=== PATIENT | female | born 1965 | race Caucasian/White ===

== ENCOUNTER 2018-01-26 09:31 | Emergency (ER) | payer OTHER, MEDICAID, SELFPAY ==
[2018-01-26 09:55] VITALS: BP 161/94; PULSE 89; RESP 18; TEMP 37.1; O2SAT 100; BMI 23.3
[2018-01-26] MEDS: SODIUM CHLORIDE 0.9% 1,000 ML 1000 ML IV (10:33)
[2018-01-26] MEDS: KETOROLAC 60 MG/2 ML VIAL 30 MG IV (10:34)
[2018-01-26] MEDS: ONDANSETRON 4 MG/2 ML INJ IV (10:34)
[2018-01-26 10:44] LABS: Add Manual Diff / Slide Review NO; Eosinophils Percent Auto 1.7 % (2-4); Hematocrit 35.4 % (36-46); Hemoglobin 11.9 g/dL (12.0-16.0); Lymphocytes Percent Auto 9.8 % (25-40); Mean Corpuscular HGB Conc 33.6 % (30-36); Mean Corpuscular Hemoglobin 28.1 PG (26-34); Mean Corpuscular Volume 83.7 fL (80-100); Monocytes Percent Auto 8.1 % (3-14); Neutrophils Absolute Auto 8400 /uL (3000-5900); Neutrophils Percent Auto 79.4 % (50-75); Platelet Count 242 X10^3/uL (150-400); Red Blood Cell Count 4.23 X10^6/uL (4.0-5.2); Red Cell Distribution Width 15.2 % (11.6-14.8); White Blood Cell Count 10.6 X10^3/uL (4.5-11.0)
[2018-01-26 10:56] LABS: BUN Creatinine Ratio 14.3 (6-22); Blood Urea Nitrogen 10 mg/dL (7-17); Calcium 9.1 mg/dL (8.4-10.2); Carbon Dioxide 29 mmol/L (22-32); Chloride 107 mmol/L (98-107); Estimated Glomerular Filt Rate > 60.0 mL/min (>60); Glucose 108 mg/dL (70-100); HEMOLYSIS < 15 (0-50); Potassium 3.7 mmol/L (3.4-5.1); Sodium 145 mmol/L (137-145)
--- NOTE | 2018-01-26 11:06 | PC.NURSE ---
also c/o back and swallowing difficulty due to pain in bilateral neck/throat and has difficult time eating or hydrating. Dry oral mucous membrane noted. Tonsilar area w/o redness/swelling/pustules. Bilateral neck, tender to palpate.
[2018-01-26 11:13] VITALS: BP 135/68; PULSE 70; RESP 17; O2SAT 99
--- NOTE | 2018-01-26 11:33 | ED_ITS ---
HPI - Nausea/Vomiting/Diarrhea General Chief complaint: Nausea/Vomiting/Diarrhea Stated complaint: SICK LAST TWO DAYS/CAN'T SWALLOW Time Seen by Provider: 01/26/18 09:54 Source: patient and RN notes reviewed Mode of arrival: ambulatory Limitations: no limitations History of Present Illness HPI Narrative: The patient is a 52-year-old female who presents with throat pain and nausea. She does have a history of trigeminal neuralgia she does get exacerbations of 8 she felt like she had 1 last night she took her baclofen this morning however she feels like it did not help. Now he is having bilateral anterior neck pain and she feels she has swelling under her chin. She says that her throat hurts but she is able to swallow. She denies any difficulty breathing. He is taken steroids in the past for nerve pain which she says she does not help. She has not had any fever or chills. MD complaint: nausea Related Data Home Medications Medication Instructions Recorded Confirmed duloxetine 60 mg PO QDAY #0 04/09/17 hydroxyzine pamoate 75 mg PO HS #0 04/09/17 prochlorperazine maleate #0 05/22/17 [Compazine] Previous Rx's Medication Instructions Recorded hydrocodone-acetaminophen 0 tab PO Q6HP PRN #15 tab 04/09/17 ondansetron [Zofran ODT] 4 mg SUBLINGUAL Q6HP PRN #20 odt 04/09/17 Allergies Allergy/AdvReac Type Severity Reaction Status Date / Time lithium Allergy Verified 01/26/18 10:02 Review of Systems Review of Systems All systems reviewed & are unremarkable except as noted in HPI and below Constitutional Denies chills, Denies fever(s), Denies lethargy and Denies weakness Eyes Denies change in vision, Denies eye discharge, Denies irritation and Denies loss of vision ENT Ears, Nose, Mouth, and Throat: Reports as per HPI, Denies change in voice, Reports facial pain, Reports mouth pain, Reports neck pain, Reports sinus pain, Reports sinus pressure, Denies throat swelling and Denies tongue swelling Cardiovascular Denies chest pain, Denies irregular heart rhythm, Denies lightheadedness, Denies palpitations, Denies dyspnea, Denies dyspnea on exertion and Denies orthopnea Respiratory Denies cough, Denies dyspnea, Denies dyspnea on exertion and Denies wheezing Gastrointestinal Gastrointestinal: Denies abdominal pain, Denies change in bowel habits, Denies diarrhea, Denies nausea and Denies vomiting Musculoskeletal Reports neck pain Integumentary/Breasts Denies pruritus, Denies erythema, Denies rash and Denies wounds Neurologic Reports as per HPI, Denies loss of vision and Denies weakness Endocrine Denies palpitations Allergic/Immunologic Denies throat swelling, Denies tongue swelling and Denies wheezing PFSH Medical History Trigeminal neuralgia (Acute) Social History Smoking Status: Current every day smoker Exam Initial Vital Signs Initial Vital Signs: Vital Signs Temperature 98.7 F 01/26/18 09:55 Pulse Rate 89 01/26/18 09:55 Respiratory Rate 18 01/26/18 09:55 Blood Pressure 161/94 H 01/26/18 09:55 Pulse Oximetry 100 01/26/18 09:55 GENERAL: Curled in a position on the gurney and appears to not feel well but no history HEENT: Head atraumatic,EOMI, pupils reactive, face symmetric, slightly dry mucous membranes, neck is supple no obvious swelling mild cervical lymphadenopathy PHARYNX: Mild erythema no uvula deviation no tonsillar exudate no petechiae CARDIOVASCULAR: Regular rate and rhythm without murmurs, rubs or gallops. RESPIRATORY: Breath sounds equal bilaterally, no wheezes rales or rhonchi. ABDOMEN: Soft, nontender. Normoactive bowel sounds all 4 quadrants. No guarding or rebound. EXTREMITIES: Normal range of motion, no clubbing or edema. Neurovascularly intact NEUROLOGICAL: Alert and oriented x4.Normal gait and speech. Cranial nerves II through XII grossly intact. Leading Firefighter strength equal bilaterally SKIN: Warm, dry, no laceration, no petechiae, no rashes or lesions. Course Orders Ordered: ED Orders 01/26/18 10:36 Basic Metabolic Panel Stat Complete Blood Count AUTO DIFF Stat Discontinued Medications Sodium Chloride (Normal Saline 0.9%) 1,000 mls @ 1,000 mls/hr IV BOLUS ONE Stop: 01/26/18 11:06 Last Infusion: 01/26/18 11:14 Dose: 0 mls/hr Admin: 01/26/18 10:33 Dose: 1,000 mls/hr Ketorolac Tromethamine (Toradol) 30 mg IV NOW ONE Stop: 01/26/18 10:08 Last Admin: 01/26/18 10:34 Dose: 30 mg Ondansetron HCl (Zofran) 4 mg IV NOW ONE Stop: 01/26/18 10:08 Last Admin: 01/26/18 10:34 Dose: 4 mg Vital Signs - 8 hr 01/26/18 09:55 01/26/18 11:13 01/26/18 11:34 Temperature 98.7 F Pulse Rate 89 70 66 Respiratory Rate 18 17 18 Blood Pressure 161/94 H Blood Pressure [Right Arm] 135/68 150/80 H Pulse Oximetry 100 99 100 MDM - Nausea/Vomiting/Diarrhea Lab Data Attestation: I reviewed the patient's lab results. Result diagrams: 01/26/18 10:36 01/26/18 10:36 Lab Results 01/26/18 01/26/18 Range/Units 10:36 10:36 WBC 10.6 (4.5-11.0) X10^3/uL RBC 4.23 (4.0-5.2) X10^6/uL Hgb 11.9 L (12.0-16.0) g/dL Hct 35.4 L (36-46) % MCV 83.7 (80-100) fL MCH 28.1 (26-34) PG MCHC 33.6 (30-36) % RDW 15.2 H (11.6-14.8) % Plt Count 242 (150-400) X10^3/uL Neut % (Auto) 79.4 H (50-75) % Lymph % (Auto) 9.8 L (25-40) % [place] % (Auto) 8.1 (3-14) % Eos % (Auto) 1.7 L (2-4) % Baso % (Auto) 1.0 (0-2) % Neut # (Auto) 8400 H (8447-9681) /uL Sodium 145 (137-145) mmol/L Potassium 3.7 (3.4-5.1) mmol/L Chloride 107 (98-107) mmol/L Carbon Dioxide 29 (22-32) mmol/L BUN 10 (7-17) mg/dL Creatinine 0.70 (0.52-1.04) mg/dL Estimated GFR > 60.0 (>60) mL/min BUN/Creatinine Ratio 14.3 (6-22) Glucose 108 H (70-100) mg/dL Calcium 9.1 (8.4-10.2) mg/dL MDM Narrative Medical decision making narrative: Overall patient is feeling better after Toradol. She feels like the swelling has gone down and her pain is lessened. We did offer strep testing although her throat does not appear infectious. At this time she would like to go home and take her trigeminal neuralgia medication baclofen monitor and see how she does. Blood work is within normal limits. She at no time has any airway compromise. Discharge Plan Departure Patient Disposition: Home Clinical Impression: Idiopathic trigeminal neuralgia Discharge Date/Time: 01/26/18 11:47 Interventions: ED Discharge Assessment Last Done: 01/26/18 11:47 Instructions: Trigeminal Neuralgia Activity Restrictions/Additional Instructions: *You have been diagnosed with trigeminal neuralgia *What to do: Take medication for trigeminal neuralgia as previously instructed home. Blood work is reassuring. *Continue to take medications as directed *Follow up with your primary care provider in 2-3 days *Return to ER if you should have difficulty swallowing, increased difficulty breathing increased pain or any new, worsening or concerning symptoms Prescriptions: No Action hydroxyzine pamoate 25 MG capsule 75 mg PO HS Qty: 0 RF: 0 duloxetine 60 MG capsule,delayed release(DR/EC) 60 mg PO QDAY Qty: 0 RF: 0 hydrocodone-acetaminophen 5 MG/325 MG tablet PO Q6HP PRNQty: 15 RF: 0 ondansetron [Zofran ODT] 4 MG tablet,disintegrating 4 mg Sublingual Q6HP PRNQty: 20 RF: 0 prochlorperazine maleate [Compazine] 10 MG tablet Qty: 0 RF: 0
[2018-01-26 11:34] VITALS: BP 150/80; PULSE 66; RESP 18; O2SAT 100
--- NOTE | 2018-01-26 11:35 | PC.NURSE ---
Pt able to tolerate a few ice chips w/o N-V. pt reports pain mildly improved.
--- NOTE | 2018-01-31 16:04 | PC.NURSE ---
pt feeling better after visit,pt denies any further questions,pt did not have anything that we could have improved on.
== END 2018-01-26 11:47 | disposition home or self-care (01) ==
PROVIDERS: Emergency Provider Emergency Medicine
DX: G50.0 Trigeminal neuralgia (principal)
CPT/HCPCS: 36591; 80048; 85025; 96361; 96374; 96375; 99283; 99284; J1885; J2405